=== PATIENT | female | born 1940 | race Caucasian/White ===

== ENCOUNTER → 2017-03-07 | Outpatient (CLI) | payer OTHER, MEDICARE | LOC: NUC 12:51 | DX: M81.0 Age-related osteoporosis without current pathological fracture (principal); M85.88 Other specified disorders of bone density and structure, other site; E28.39 Other primary ovarian failure; Z78.0 Asymptomatic menopausal state ==

== ENCOUNTER → 2021-01-06 | Outpatient (CLI) | payer OTHER, MEDICARE | LOC: NUC 10:43 | PROVIDERS: ATTEND Internal Medicine | DX: M85.88 Other specified disorders of bone density and structure, other site (principal) ==